=== PATIENT | female | born 1985 | race Caucasian/White ===

== ENCOUNTER 2017-08-19 11:28 | Emergency (ER) | payer SELFPAY ==
[~2017-08-19] VITALS: Ht 170.2 cm; Wt 73.0 kg
[~2017-08-19 11:28] MED LIST: ANTIVERT25 MG PO
[2017-08-19 12:17] LABS: ALBUMIN 4.2 g/dL (3.2-4.8); CHLORIDE 109 mEq/L (99-109); POTASSIUM 3.6 mEq/L (3.7-5.4); SODIUM 141 mEq/L (136-147)
[2017-08-19 12:19] LABS: BASOPHIL (%) 0.6 % (0-1); BASOPHIL COUNT 0.1 K/uL (0-0.1); EOSINOPHIL (%) 0.5 % (0-5); EOSINOPHIL COUNT 0.1 K/uL (0-0.3); GLUCOSE 103 mg/dL (70-99); HEMATOCRIT 35.1 % (36.0-46.0); HEMOGLOBIN 11.1 G/DL (11.9-15.5); IMMATURE GRANULOCYTE (%) 0.2 % (0.0-0.7); LYMPHOCYTE (%) 13.6 % (15-42); LYMPHOCYTE COUNT 1.5 K/uL (1.0-2.8); MCH 23.1 PG (29.0-34.0); MCHC 31.6 G/DL (30.0-36.0); MCV 73.1 FL (83-99); MONOCYTE (%) 7.5 % (3-12); MONOCYTE COUNT 0.8 K/uL (0-0.8); NEUTROPHIL (%) 77.6 % (45-76); NEUTROPHIL COUNT 8.5 K/uL (1.8-6.4); PLATELET COUNT 331 K/uL (156-360); RBC DIS.WIDTH-SD 49.8 % (39-53); WHITE BLOOD COUNT 10.9 K/uL (4.1-10.2)
[2017-08-19 12:21] LABS: TOTAL BILIRUBIN 0.3 mg/dL (0.0-1.0)
[2017-08-19 12:23] LABS: ALKALINE PHOSPHATASE 69 IU/L (3-129); CREATININE 0.7 mg/dL (0.6-1.3); GFR ESTIMATE (CALCULATED) > 59 mL/min/
[2017-08-19 12:24] LABS: UREA NITROGEN (BUN) 5 mg/dL (9-23)
[2017-08-19 12:25] LABS: AST (GOT) 17 IU/L (2-34)
[2017-08-19 12:26] LABS: ALT (GPT) 14 IU/L (3-49); LIPASE 37 U/L (1.0-51.0)
[2017-08-19 13:06] LABS: APPEARANCE CLEAR ((CLEAR)); BILIRUBIN NEGATIVE; BLOOD NEGATIVE; COLOR COLORLESS ((YELLOW)); GLUCOSE (STRIP) NEGATIVE; KETONES NEGATIVE; LEUKOCYTES NEGATIVE; NITRITE NEGATIVE; PROTEIN (STRIP) NEGATIVE; SPECIFIC GRAVITY 1.004 (1.000-1.030); UCUL ADDED? NO; UROBILINOGEN 0.2 MG/DL (0.2-1.0)
[2017-08-19] MEDS ORDERED: PROTONIX40 MG PO (15:53)
[2017-08-19 16:10] VITALS: BP 122/71
== END 2017-08-19 16:18 | disposition home or self-care (01) ==
LOC: EME 11:28
PROVIDERS: Emergency Medicine
DX: R10.13 Epigastric pain (principal); Z90.49 Acquired absence of other specified parts of digestive tract; Z88.1 Allergy status to other antibiotic agents
CPT/HCPCS: 71045; 74176; 80053; 81003; 83690; 85025; 99281; 99285